=== PATIENT | male | born 1975 | race Caucasian/White ===

== ENCOUNTER 2023-03-16 09:56 | Emergency (ER) | payer OTHER, SELFPAY | END 2023-03-16 12:45 | disposition home or self-care (01) | LOC: CSHERS 09:56 | DX: S52.122A Displaced fracture of head of left radius, initial encounter for closed fracture (principal); F17.210 Nicotine dependence, cigarettes, uncomplicated; V19.3XXA Pedal cyclist (driver) (passenger) injured in unspecified nontraffic accident, initial encounter | CPT/HCPCS: 29125 ==